=== PATIENT | female | born 1995 | race Two or more races ===

== ENCOUNTER 2024-06-27 15:00 | Outpatient (CLI) | payer OTHER | END 2024-06-27 15:03 | disposition home or self-care (01) | LOC: PRENATAL 15:00 | PROVIDERS: ATTEND Obstetrics & Gynecology Maternal & Fetal Medicine | DX: O36.80X0 Pregnancy with inconclusive fetal viability, not applicable or unspecified (principal); Z36.82 Encounter for antenatal screening for nuchal translucency; Z14.8 Genetic carrier of other disease; O36.1999 Maternal care for other isoimmunization, unspecified trimester, other fetus ==

== ENCOUNTER 2024-08-07 11:13 | Outpatient (CLI) | payer OTHER | END 2024-08-07 11:14 | disposition home or self-care (01) | LOC: PRENATAL 11:13 | PROVIDERS: ATTEND Obstetrics & Gynecology Maternal & Fetal Medicine | DX: O44.00 Complete placenta previa NOS or without hemorrhage, unspecified trimester (principal); O36.1999 Maternal care for other isoimmunization, unspecified trimester, other fetus; Z3A.20 20 weeks gestation of pregnancy ==

== ENCOUNTER 2024-10-08 10:32 | Outpatient (CLI) | payer OTHER | END 2024-10-08 10:33 | disposition home or self-care (01) | LOC: PRENATAL 10:32 | PROVIDERS: ATTEND Obstetrics & Gynecology Maternal & Fetal Medicine | DX: O44.00 Complete placenta previa NOS or without hemorrhage, unspecified trimester (principal); O36.1999 Maternal care for other isoimmunization, unspecified trimester, other fetus; Z3A.29 29 weeks gestation of pregnancy ==

== ENCOUNTER 2024-11-18 10:25 | Outpatient (CLI) | payer OTHER | END 2024-11-18 10:27 | disposition home or self-care (01) | LOC: PRENATAL 10:25 | PROVIDERS: ATTEND Obstetrics & Gynecology Maternal & Fetal Medicine | DX: O26.849 Uterine size-date discrepancy, unspecified trimester (principal); O36.8199 Decreased fetal movements, unspecified trimester, other fetus; O43.90 Unspecified placental disorder, unspecified trimester; Z3A.36 36 weeks gestation of pregnancy ==

== ENCOUNTER 2024-12-13 11:41 | Outpatient (CLI) | payer OTHER ==
[2024-12-13] MEDS ORDERED: PRENATA CHEWAB1 EACH PO (13:21)
== END 2024-12-13 11:43 | disposition home or self-care (01) ==
LOC: PRENATAL 11:41
PROVIDERS: ATTEND Obstetrics & Gynecology Maternal & Fetal Medicine
DX: O26.849 Uterine size-date discrepancy, unspecified trimester (principal); O36.8199 Decreased fetal movements, unspecified trimester, other fetus; O26.859 Spotting complicating pregnancy, unspecified trimester; Z3A.39 39 weeks gestation of pregnancy

== ENCOUNTER 2024-12-13 13:07 | Outpatient (CLI) | payer OTHER ==
[2024-12-13 11:56] VITALS: BP 125/82
[2024-12-13] MEDS ORDERED: PRENATA CHEWAB1 EACH PO (13:21)
[2024-12-13] MEDS ORDERED: RINGERS SOLUTION,LACTATED 1,000 ML IV SCH (13:45)
[2024-12-13 14:06] LABS: BASO % 0.1 % (0.1-1.2); EOS # 0.02 (0.04-0.54); EOS % 0.3 % (0.7-7.0); LYMPH # 0.95 (1.18-3.74); LYMPH % 12.2 % (19.3-53.1); MEAN PLATELET VOLUME 10.70 fl (9.4-12.4); MONO # 0.57 (0.24-0.82); MONO % 7.3 % (4.7-12.5); NEUT # 6.20 (1.56-6.13); NEUT % 79.6 % (34.0-71.1); RED CELL DISTRIBUTION WIDTH 12.0 % (11.6-14.4)
[2024-12-13 14:12] LABS: INR 0.94
[2024-12-13 15:18] VITALS: BP 132/83
[2024-12-13 17:12] LABS: URINE APPEARANCE Clear; URINE BILIRRUBIN Negative (NEGATIVE); URINE BLOOD Large; URINE COLOR Yellow; URINE GLUCOSE Negative (NEGATIVE); URINE KETONE Trace (NEGATIVE); URINE LEUKOCYTE Trace; URINE NITRATE Negative; URINE PROTEIN Trace (NEGATIVE); URINE UROBILINOGEN 1.0 E.U./dl
[2024-12-13 17:16] LABS: URINE BACTERIA 265.1 uL (0.0-1933); URINE EPITHELIAL CELLS 24.7 uL (0.0-38.8); URINE RBC 110.4 uL (0.0-20.8); URINE WBC 24.6 uL (0.0-23.2)
[2024-12-13 17:45] LABS: URINE CAST 1.17 uL (0.0-1.40)
[2024-12-13 23:28] VITALS: BP 133/77
[2024-12-14 04:33] VITALS: BP 126/75; O2SAT 100
[2024-12-14 07:19] VITALS: BP 119/67
[2024-12-14 11:25] VITALS: BP 125/81
[2024-12-14 12:30] VITALS: BP 125/81
== END 2024-12-14 12:33 | disposition home or self-care (01) ==
LOC: OBS/DEL 13:07 → LDR 12-16 05:35
PROVIDERS: ATTEND Obstetrics & Gynecology
DX: O46.93 Antepartum hemorrhage, unspecified, third trimester (principal); Z3A.37 37 weeks gestation of pregnancy

== ENCOUNTER 2024-12-16 05:38 | Inpatient (IN) | payer OTHER ==
[~2024-12-16] VITALS: Ht 167.6 cm; Wt 81.6 kg
[2024-12-16] VITALS (7 sets, daily range): BP systolic 112–129; BP diastolic 68–76; O2SAT 99
[~2024-12-16 05:38] MED LIST: PRENATA CHEWAB1 EACH PO
[2024-12-16] MEDS ORDERED: RINGERS SOLUTION,LACTATED 1,000 ML IV SCH (05:45)
[2024-12-16] MEDS ORDERED: MORPHINE SULFATE 4 MG/ML CARTRIDGE IV PRN (05:45)
[2024-12-16 07:17] LABS: URINE APPEARANCE Cloudy; URINE BILIRRUBIN Negative (NEGATIVE); URINE BLOOD Large; URINE COLOR Orange; URINE GLUCOSE Negative (NEGATIVE); URINE KETONE Trace (NEGATIVE); URINE LEUKOCYTE Small; URINE NITRATE Negative; URINE UROBILINOGEN 1.0 E.U./dl
[2024-12-16 07:19] LABS: INR < 0.93; URINE BACTERIA 1765.1 uL (0.0-1933); URINE CAST 1.46 uL (0.0-1.40); URINE EPITHELIAL CELLS 56.4 uL (0.0-38.8); URINE RBC 3222.2 uL (0.0-20.8); URINE WBC 97.2 uL (0.0-23.2)
[2024-12-16 07:22] LABS: ALT/SGPT 10.0 U/L (12-78); AST/SGOT 14.0 U/L (15-37); BILIRUBIN TOTAL 0.62 mg/dL (0.3-1.2); BUN CREA RATIO 17.0 (7.0-25.0); CREATININE SERUM 0.69 mg/dL (0.55-1.02); GFR 101.3; GLOBULINA 3.5 G/DL (2.4-3.5); GLUCOSE FASTING 122.0 mg/dL (65-100); OSMOLALITY SERUM 282.0 MOSM/KG (275-295)
[2024-12-16 07:32] LABS: URINE PROTEIN 100 (NEGATIVE)
[2024-12-16 07:45] LABS: BASO % 0.1 % (0.1-1.2); EOS # 0.03 (0.04-0.54); EOS % 0.4 % (0.7-7.0); LYMPH # 1.21 (1.18-3.74); LYMPH % 16.6 % (19.3-53.1); MEAN PLATELET VOLUME 11.00 fl (9.4-12.4); MONO # 0.58 (0.24-0.82); MONO % 7.9 % (4.7-12.5); NEUT # 5.42 (1.56-6.13); NEUT % 74.3 % (34.0-71.1); RED CELL DISTRIBUTION WIDTH 12.1 % (11.6-14.4)
[2024-12-16] MEDS ORDERED: LIDOCAINE HCL 1% 10ML VIAL PERCUT ONE (11:45)
[2024-12-16] MEDS ORDERED: OXYTOCIN 2,000 ML IV ONE (11:45)
[2024-12-16] MEDS ORDERED: CHLORHEXIDINE GLUCONATE 120 ML BOTTLE TOP ONE (11:45)
[2024-12-16 18:24] LABS: BASO % 0.1 % (0.1-1.2); EOS # 0.00 (0.04-0.54); EOS % 0.0 % (0.7-7.0); LYMPH # 1.06 (1.18-3.74); LYMPH % 7.3 % (19.3-53.1); MEAN PLATELET VOLUME 10.30 fl (9.4-12.4); MONO # 0.86 (0.24-0.82); MONO % 5.9 % (4.7-12.5); NEUT # 12.54 (1.56-6.13); NEUT % 86.4 % (34.0-71.1); RED CELL DISTRIBUTION WIDTH 12.1 % (11.6-14.4)
[2024-12-17 00:58] VITALS: BP 109/72
[2024-12-17 08:46] VITALS: BP 106/70
[2024-12-17] MEDS ORDERED: PNV,CALCIUM 72/IRON/FOLIC ACID 1 TAB TABLET PO SCH (09:00)
[2024-12-17 16:45] VITALS: BP 114/68
[2024-12-18] VITALS: BP 121/75
[2024-12-18 09:12] VITALS: BP 123/75
[2024-12-18] MEDS ORDERED: FF) RHO(D) IMMUNE GLOBULIN (POM) IM ONE (10:40)
== END 2024-12-18 14:30 | disposition home or self-care (01) | DRG 807 ==
LOC: OB/GYN 05:38 → LDR 05:38 → O/R 10:07 → LDR 10:08 → OB/GYN 12:35
PROVIDERS: ADMIT Obstetrics & Gynecology; ATTEND Obstetrics & Gynecology
PROC: 10E0XZZ Delivery of Products of Conception, External Approach (ICD-10-PCS; principal; 2024-12-16)
PROC: 0KQM0ZZ Repair Perineum Muscle, Open Approach (ICD-10-PCS; 2024-12-16)
PROC: 4A1HXCZ Monitoring of Products of Conception, Cardiac Rate, External Approach (ICD-10-PCS; 2024-12-16)
DX: O70.1 Second degree perineal laceration during delivery (principal); Z37.0 Single live birth; Z3A.38 38 weeks gestation of pregnancy